=== PATIENT | male | born 1980 | race Caucasian/White ===

== ENCOUNTER → 2017-09-30 13:56 | Outpatient (CLI) | payer OTHER, SELFPAY ==
--- NOTE | 2017-09-30 14:00 | ECHOD_ITS ---
Reason For Study: PALPITATIONS Procedure This was a 2D Doppler, Color Flow transthoracic echocardiogram. Exam performed in department. Left Ventricle Normal size and thickness. The estimated ejection fraction is 65 %. Normal diastology for age. No regional wall motion abnormalities noted. Right Ventricle Normal size and thickness. Normal systolic function. Atria Normal left atrium. Normal right atrium. Normal atrial septum. Mitral Valve The mitral valve is structurally normal. No prolapse or stenosis seen. Trivial mitral valve insufficiency. Tricuspid Valve Normal tricuspid valve. Unable to estimate RV systolic pressure/pulmonary artery pressure due to technically difficult study. Aortic Valve Normal aortic valve. Trisinus/trileaflet aortic valve. Pulmonic Valve Normal pulmonic valve. Trivial pulmonic valve insufficiency. Great Vessels Normal aortic root. Normal arch. Normal inferior vena cava. Inferior vena cava collapse with sniff. Pericardium/Pleural No pericardial effusion. MMode/2D Measurements & Calculations LVIDd: 5.2 cm IVSd: 1.0 cm Ao root diam: 3.0 cm LVIDs: 3.2 cm LVPWd: 0.93 cm LA dimension: 4.0 cm RVDd: 3.6 cm FS: 39.2 % LAV(MOD-bp): 70.9 ml LA A4 area: 20.4 cm2 RA A4 area: 16.4 cm2 LAV(MOD-bp) Indexed: 35.3 ml/m2 LAV(MOD-sp2): 72.9 ml LAV(MOD-sp4): 67.3 ml Doppler Measurements & Calculations MV E max harsh: 92.7 cm/sec Lat Peak E' Harsh: 14.5 cm/sec Med Peak E' Harsh: 10.3 cm/sec MV A max harsh: 57.2 cm/sec E/E' lat: 6.4 E/E' med: 9.0 MV E/A: 1.6 Ao V2 max: 115.2 cm/sec LV V1 max: 98.2 cm/sec PA V2 max: 99.0 cm/sec Ao max P.3 mmHg LV V1 max P.9 mmHg Interpretation Summary The estimated ejection fraction is 65 %. Normal diastology for age. Trivial mitral valve insufficiency. Unable to estimate RV systolic pressure/pulmonary artery pressure due to technically difficult study. There is no comparison study available. Ordering Physician: Ravinder Gao Referring Physician: Phuc Wilson Performed By: Jessika Suh, AURELIO, RVT
== END ==
PROVIDERS: Family Provider Preventive Medicine Occupational Medicine; PCP Preventive Medicine Occupational Medicine; Visit Provider Internal Medicine Cardiovascular Disease
DX: R00.2 Palpitations (principal)
CPT/HCPCS: 93306

== ENCOUNTER → 2017-10-07 10:26 | Outpatient (CLI) | payer OTHER, SELFPAY ==
--- NOTE | 2017-10-07 11:00 | STE_ITS ---
Reason For Study: PALPITATIONS Stress Results Protocol: ALONSO Maximum Predicted HR: 182 bpm Target HR: 155 bpm % Maximum Predicted HR: 95 % DurationHeart Rate Stage (mm:ss) (bpm) BP BASELINE 64 122/76 STAGE 1 3:00 11 2 162/62 STAGE 2 3:00 13 3 172/60 STAGE 3 3:00 15 3 184/56 STAGE 4 3:00 17 3 198/54 RECOVERY 96 132/70 Stress Duration: 12:00 mm:ss Maximum Stress HR: 173 bpm Baseline Echocardiogram Findings The estimated ejection fraction is 65 %. Stress Echo Wall motion Data Resting WMIntermediate WMStress WM Resting Wall Motion Wall Motion Stress No regional wall motion No regional wall motion abnormalities noted. abnormalities noted. EKG Data The baseline ECG demonstrates normal sinus rhythm with at rate of _ beats per minute. The patient exercised according to the regular Alonso protocol for a total duration of 12:00. The maximum heart rate attained was 176 beats per minute. This was 96% of maximum predicted heart rate. The patient exercised into stage 5 of the Alonso protocol. During stress, there were no ST or T wave changes noted to suggest ischemia. No clinical angina was noted. No arrhythmias noted. Interpretation Summary The estimated ejection fraction is 65 %. Normal adequate treadmill echocardiogram. Negative for ischemia by EKG and echocardiographic criteria. No anginal symptoms noted. No arrhythmias noted. Appropriate blood pressure response to exercise. Average exercise capacity for age. Final LVEF is 75%. Patient tolerated the procedure well. Ordering Physician: Ravinder Gao Referring Physician: Ravinder Gao Performed By: Margarita Arceo RDCS, RVT
== END ==
LOC: CVS 10:26
PROVIDERS: Family Provider Preventive Medicine Occupational Medicine; PCP Preventive Medicine Occupational Medicine; Visit Provider Internal Medicine Cardiovascular Disease
DX: R00.2 Palpitations (principal)
CPT/HCPCS: 93017; 93350